=== PATIENT | male | born 1960 | race Caucasian/White ===

== ENCOUNTER → 2016-08-02 | Outpatient (CLI) | payer OTHER ==
[2016-08-02 13:59] LABS: BASO % 0.3 %; BASO ABS # 0.02 K/uL (0-0.2); COMPLETE YES; HEMATOCRIT 45.5 % (42-52); IG% 0.3 %; LYMPH % 40.6 %; LYMPH ABS # 2.82 K/uL (1.2-3.4); MEAN CELL VOLUME 84.3 fL (80-100); MEAN CORPUSCULAR HEMOGLOBIN 29.1 pg (25-34); MEAN CORPUSCULAR HGB CONC 34.5 g/dl (32-36); MEAN PLATELET VOLUME 11.8 fL (7.4-10.4); MONO % 8.6 %; NEUT % 49.2 %; PLATELET COUNT 180 K/uL (130-400); WHITE BLOOD COUNT 6.94 K/uL (4.8-10.8)
[2016-08-02 14:17] LABS: ALT/SGPT 23 U/L (12-78); AST/SGOT 8 U/L (15-37); BLOOD UREA NITROGEN 7 mg/dl (7-18); BUN/CREATININE RATIO 7.6 (10-20); CALCIUM 8.9 mg/dl (8.5-10.1); CARBON DIOXIDE 30 mmol/L (21-32); CHLORIDE 104 mmol/L (98-107); CREATININE 0.92 mg/dl (0.60-1.40); GLUCOSE 311 mg/dl (70-99); SODIUM 140 mmol/L (136-145)
[2016-08-02 14:21] LABS: ALKALINE PHOSPHATASE 117 U/L (45-117); CHOLESTEROL 196 mg/dl (0-200); CHOLESTEROL/HDL RATIO 5.8; HDL CHOLESTEROL 34 mg/dl; LDL CHOLESTEROL CALCULATED 116 mg/dl; TRIGLYCERIDES 229 mg/dl (0-150); VERY LOW DENSITY LIPOPROT CALC 46 mg/dl
[2016-08-02 14:28] LABS: BETA-HYDROXYBUTYRATE 2.14 mg/dL (0.2-2.81); PROSTATE SPECIFIC ANTIGEN 0.426 ng/ml (0.000-4.000)
== END | disposition home or self-care (01) ==
LOC: C.LABBC 11:38
PROVIDERS: ATTEND Nurse Practitioner Family
DX: Z13.220 Encounter for screening for lipoid disorders (principal); Z12.5 Encounter for screening for malignant neoplasm of prostate; Z13.1 Encounter for screening for diabetes mellitus

== ENCOUNTER → 2016-08-03 | Outpatient (CLI) | payer OTHER ==
[2016-08-03 17:36] LABS: RATIO 94.4 mcg/mg (0-30.0)
[2016-08-04 05:52] LABS: ESTIMATED AVERAGE GLUCOSE 329 mg/dl; HA1C FLAG Normal (Normal)
== END | disposition home or self-care (01) ==
LOC: C.LABBC 13:16
PROVIDERS: ATTEND Nurse Practitioner Family
DX: R73.9 Hyperglycemia, unspecified (principal)

== ENCOUNTER 2017-05-25 14:19 | Emergency (ER) | payer OTHER ==
[~2017-05-25] VITALS: Ht 177.8 cm; Wt 117.9 kg
[2017-05-25 14:24] VITALS: TEMP 36.8; Ht 177.8 cm; Wt 117.9 kg
[2017-05-25] MEDS ORDERED: HYDROCODONE/ACETAMOPHEN 5/325MG TAB PO ONE (15:00)
[2017-05-25] MEDS ORDERED: GLC/500 PO (15:27)
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
--- NOTE | 2017-05-25 15:32 | DIAGNOSTIC IMAGING REPORT ---
CHEST 2 VIEWS ROUTINE CLINICAL HISTORY: shortness of breath dyspnea COMPARISON STUDY: No previous studies for comparison. FINDINGS: Slight peribronchial and/or interstitial prominence. No well-defined focal infiltrate. Diaphragms are smooth. Pulmonary apices are clear. IMPRESSION: Slight basilar peribronchial and interstitial change. Otherwise negative study. The above report was generated using voice recognition software. It may contain grammatical, syntax or spelling errors. Electronically signed by: Jake Romero M.D. 05/25/2017 3:31 PM Dictated Date/Time: 05/25/2017 3:30 PM
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
[2017-05-25] MEDS ORDERED: HYDR-5688 PO (16:07)
[2017-05-25 16:10] VITALS: BP 125/95; PULSE 115; O2SAT 93
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
[2017-05-29] MEDS ORDERED: HYDR-5688 PO (15:05)
== END 2017-05-25 16:18 | disposition home or self-care (01) ==
LOC: C.EDB 14:21 → C.EDD 16:18
DX: S52.001A Unspecified fracture of upper end of right ulna, initial encounter for closed fracture (principal); Y04.0XXA Assault by unarmed brawl or fight, initial encounter; W01.198A Fall on same level from slipping, tripping and stumbling with subsequent striking against other object, initial encounter; Z87.81 Personal history of (healed) traumatic fracture; Z79.84 Long term (current) use of oral hypoglycemic drugs

== ENCOUNTER 2024-03-17 13:08 | Observation (INO) ==
[2024-03-17] MEDS: OPTIRAY 320 100ml IV ONE (13:44)
[2024-03-17 13:49] LABS: Basophils # (auto) 0.06 K/uL (0.00-0.20); Basophils % (auto) 0.8 %; Eosinophils # (auto) 0.08 K/uL (0.00-0.50); Hematocrit (blood only) 47.7 % (42.0-52.0); Hemoglobin 16.1 g/dl (14.0-18.0); Immature Granulocytes # (auto) 0.05 K/uL (0.01-0.20); Immature Granulocytes % (auto) 0.6 %; Lymphocytes # (auto) 2.82 K/uL (1.20-3.40); Lymphocytes % (auto) 36.6 %; Mean Corpuscular Hemoglobin 28.6 pg (25.0-34.0); Mean Corpuscular Hgb Conc 33.8 g/dL (32.0-36.0); Mean Corpuscular Volume 84.9 fL (80.0-100.0); Mean Platelet Volume 11.3 fL (9.4-12.4); Monocytes # (auto) 0.81 K/uL (0.11-0.59); Monocytes % (auto) 10.5 %; Neutrophils # (auto) 3.88 K/uL (1.40-6.50); Neutrophils % (auto) 50.5 %; Platelet Count 171 K/uL (130-400); RDW Coefficient of Variation 11.9 % (11.5-14.5); RDW Standard Deviation 36.3 fL (36.4-46.3); Red Blood Count 5.62 M/uL (4.70-6.10)
[2024-03-17 13:53] LABS: iSTAT Ionized Calcium 1.22 mmol/l (1.12-1.32); iSTAT Potassium 3.8 mmol/L (3.3-5.0)
[2024-03-17 14:05] LABS: Albumin Globulin Ratio 1.4 (0.9-2); Albumin Level 4.6 gm/dl (3.4-5.0); BUN Creatinine Ratio 15.7 (10-20); Bilirubin,Total 0.5 mg/dl (0.2-1.0); Calcium 9.8 mg/dl (8.6-10.3); Creatinine Clr Calc Pharmacy 90.8 ml/min; Globulin 3.2 gm/dl (2.5-4.0); Potassium 3.8 mmol/L (3.5-5.1); Total Protein 7.8 gm/dl (6.0-8.3)
[2024-03-17 14:11] LABS: Troponin I High Sensitivity 5.9 pg/ml (0-20)
--- NOTE | 2024-03-17 14:14 | CT Scan Report ---
EXAM: CT Head Without Intravenous Contrast INDICATION: Slurred speech and right facial droop. TECHNIQUE: Axial computed tomography images of the head/brain without intravenous contrast. Sagittal and/or coronal reformats are provided. Sagittal and coronal reformatted images were created and reviewed. This CT exam was performed using one or more of the following dose reduction techniques: automated exposure control, adjustment of the mA and/or kV according to patient size, and/or use of iterative reconstruction technique. COMPARISON: No relevant prior studies available. FINDINGS: Limitations: None. Brain and extra-axial spaces: There is age appropriate cortical atrophy and chronic ischemic periventricular white matter hypodensity. No acute infarct, hemorrhage or mass noted. Bones/joints: No acute changes. Soft tissues: No significant abnormality noted. Vasculature: No acute abnormality noted. Sinuses: Trace chronic mucosal thickening floor of the left maxillary sinus. Mastoid air cells: No mastoid effusion. Orbits: No significant abnormality noted. Dental: Apical erosion of multiple maxillary teeth. IMPRESSION: 1. Cerebral atrophy. No acute changes. 2. Apical erosion of multiple maxillary teeth. 3. Trace chronic mucosal thickening floor of the left maxillary sinus. ACT 112: Negative or not required by law. Electronically signed by Demetrice Hayden 03-17-2024 2:14 PM
[2024-03-17 14:15] LABS: Partial Thromboplastin Time 27 Seconds (21-31); Prothrombin Time 10.9 Seconds (9.0-12.0)
--- NOTE | 2024-03-17 14:18 | Emergency Department Note ---
Impression & Plan Facial droop, Slurred speech ED Provider Note HISTORY OF PRESENT ILLNESS: Patient is a 63-year-old male presenting with facial droop and slurred speech. Patient reports that he went to bed last night around 2100 and thought he might of had some droop in his face. He states that he awoke this morning around 5 AM and noticed that the right side of his face was drooping and he had difficulty speaking and had slurred speech. He states that he thought the symptoms would improve, but they did not over the subsequent hours, prompting him to present to the emergency department. He denies any history of previous strokes. Denies any headache or changes in vision. Denies any chest pain or shortness of breath. Denies any nausea or vomiting. Denies any recent rashes. ROS: as above PHYSICAL EXAM: Constitutional: Patient appears in no acute distress. Patient appears unkempt HENT: Head: Normocephalic and atraumatic. Eyes: EOMI, PERRL Mouth/Throat: Mucous membranes moist. Neck: Trachea midline. Neck supple. Cardiovascular: Tachycardic with regular rhythm. No murmurs, rubs or gallops. Intact distal pulses. Pulmonary/Chest: No respiratory distress. Breath sounds clear and equal bilaterally. No wheezes or rales. No chest wall tenderness to palpation. Abdominal: Abdomen soft, no tenderness, rebound or guarding. Musculoskeletal: No edema, tenderness or deformity noted. Skin: Warm and dry. No rash, erythema, pallor or cyanosis Psychiatric: Appropriate mood and affect for situation. Neurological: Alert and keenly responsive. Patient has significant droop of the right side of the face that involves the forehead. Able to shrug shoulders. PERRLA. SILT to forehead below eye and at jawline. Can hear soft noise bilaterally. Good finger to nose. Strength 5/5 in bilateral upper and lower extremities. SILT throughout bilateral upper and lower extremities. MDM: - Vitals signs showed hypertension and tachycardia - History obtained via patient. History as above. - Chronic conditions affecting care: DM-2 - Differential diagnoses include, but are not limited to: CVA; intracranial hemorrhage; ACS; electrolyte abnormality; dysrhythmia; Contreras's palsy - Order placed for continuous cardiac monitoring. At this time, monitor showed rate of 100 bpm with normal sinus rhythm, per my interpretation. - External medical records reviewed. Primary care visit note dated 07/16/2020 was reviewed. Patient has a history of diabetes and was supposed to be started on losartan at that visit. However, no new documentation since 2020. - EKG interpreted by myself showed normal sinus rhythm. Rate 110 bpm. QT 350. No acute ischemic changes. - Laboratory workup interpreted by myself showed normal WBC; normal PT/INR; stable electrolytes; normal troponin; hyperglycemia (glucose 262) without evidence of DKA - CT head wo contrast negative for acute pathology. Noted to have cerebral atrophy. Noted to have apical erosions multiple maxillary teeth. - CTA head/neck with IV contrast showed no large vessel occlusion. Noted to have atherosclerosis of the proximal extracranial into carotid arteries. - CXR negative for pneumonia, per my interpretation - UA ordered - Patient is noncompliant with medications at home but does not follow regularly with a doctor. His facial droop does involve his forehead, so Contreras's palsy is more likely on the differential. However, I cannot initiate steroids at this time secondary to his hyperglycemia in the setting of his diabetes. I do feel that he requires further strokelike symptoms workup, including medication management and MRI imaging, so will admit to hospitalist service. - Discussion was had with caseworker intake about patient's case and need for admission - Hospitalist consulted for admission - Patient admitted to [facility] hospitalist service for further evaluation and management. ASSESSMENT AND PLAN: Diagnosis: Facial droop; slurred speech Plan: Admit Past Med/Surg History Problem List (Updated 03/17/24 @ 15:58 by Herminia Mercedes PA-C) Tachycardia Stroke-like symptoms Slurred speech (Acute) Facial droop (Acute) Sciatic leg pain (Acute) Diabetes Medical History No significant past medical history Surgical History History of surgery on arm Family History Brother Liver cancer Lung cancer Denies family history of Colon cancer Ovarian cancer Prostate cancer Myocardial infarction Breast cancer Social History Smoking Status: Never smoker Tobacco Type: Cigarettes Age Started Using Tobacco: 23; Age Quit Using Tobacco: 49; packs per day: 5; Second Hand Exposure: Yes; Do You Dip or Chew Tobacco: Yes; Hx Alcohol Use: Yes Alcohol type: hard liquor Alcohol Intake Frequency: Never Hx Substance Use: No Preferred Language: Persian Communication Ability: Effective Visual Impairment: No Limitations Hearing Ability: Normal marital status: Single Current Living Situation: Other Current Living Situation Comment: Roomates current occupational status: employed current occupation: [employer] Feels Safe at Home: Yes Childhood Exposure to Second-Hand Smoke: No Dental Care, Regularly: No Physical Activity Frequency: Does not Exercise Seatbelt Use: never Sunscreen Use: No Allergies Allergies Allergy/AdvReac Type Severity Reaction Status Date / Time aspirin AdvReac Mild vomiting Unverified 07/16/20 17:25 Home Meds Home Medications Medication Instructions Recorded Confirmed tramadol 50 mg tablet 50 - 100 mg PO Q6 PRN Pain 06/25/20 07/16/20 Previous Rx's Medication Instructions Recorded losartan 25 mg tablet 25 mg PO DAILY #90 tabs 07/16/20 metformin 500 mg tablet 500 mg PO BID #180 tabs 07/20/20 Results & Data (ED) Vital Signs Vital Signs - 24 hr 03/17/24 13:18 03/17/24 13:33 03/17/24 13:33 Temperature 36.1 C L Temperature Source Skin Pulse Rate 110 H 108 H Pulse Rate [Right Finger] 111 H Pulse Rhythm Regular Pulse Rhythm [Right Finger] Regular Pulse Strength [Right Finger] Normal Respiratory Rate 17 17 22 Respiratory Effort / Characteristics Non-Labored Spontaneous Non-Labored Respiratory Depth Normal Normal Respiratory Pattern Regular Regular Blood Pressure 197/119 H Blood Pressure [Right Arm] 174/110 H Blood Pressure Mean 145 Blood Pressure Mean [Right Arm] 131 Blood Pressure Position [Right Arm] Lying Pulse Oximetry 95 95 95 Oxygen Delivery Method Room Air Room Air Room Air Sepsis Recent Fever Within 48 Hours No Sepsis New/Unexplained Change in Mental Status N/A Sepsis Action Taken by Nursing No Action Required 03/17/24 14:02 03/17/24 15:10 03/17/24 15:34 Temperature Temperature Source Pulse Rate 98 H Pulse Rate [Right Finger] 102 H Pulse Rhythm Pulse Rhythm [Right Finger] Regular Pulse Strength [Right Finger] Normal Respiratory Rate 22 Respiratory Effort / Characteristics Non-Labored Spontaneous Respiratory Depth Normal Respiratory Pattern Regular Blood Pressure Blood Pressure [Right Arm] 118/96 Blood Pressure Mean Blood Pressure Mean [Right Arm] 103 Blood Pressure Position [Right Arm] Lying Pulse Oximetry 93 93 Oxygen Delivery Method Room Air Room Air Sepsis Recent Fever Within 48 Hours Sepsis New/Unexplained Change in Mental Status Sepsis Action Taken by Nursing Laboratory Data 03/17/24 13:35 03/17/24 13:35 Lab Results 03/17/24 03/17/24 03/17/24 Range/Units 13:35 13:40 13:41 WBC 7.70 (4.8-10.8) K/ul RBC 5.62 (4.70-6.10) M/uL Hgb 16.1 (14.0-18.0) g/dl POC Hgb 17.0 (14.0-18.0) g/dl Hct 47.7 (42.0-52.0) % POC Hct 50 (42-52) % MCV 84.9 (80.0-100.0) fL MCH 28.6 (25.0-34.0) pg MCHC 33.8 (32.0-36.0) g/dL RDW Std Deviation 36.3 L (36.4-46.3) fL RDW Coeff of Buck 11.9 (11.5-14.5) % Plt Count 171 (130-400) K/uL MPV 11.3 (9.4-12.4) fL Immature Gran % (Auto) 0.6 % Neut % (Auto) 50.5 % Lymph % (Auto) 36.6 % [place] % (Auto) 10.5 % Eos % (Auto) 1.0 % Baso % (Auto) 0.8 % Neut # (Auto) 3.88 (1.40-6.50) K/uL Lymph # (Auto) 2.82 (1.20-3.40) K/uL [place] # (Auto) 0.81 H (0.11-0.59) K/uL Eos # (Auto) 0.08 (0.00-0.50) K/uL Baso # (Auto) 0.06 (0.00-0.20) K/uL Immature Gran # (Auto) 0.05 (0.01-0.20) K/uL PT 10.9 (9.0-12.0) Seconds INR 1.0 (0.9-1.1) APTT 27 (21-31) Seconds PTT Ratio 1.0 POC Sodium 140 (135-144) mmol/L Sodium 137 (136-145) mmol/L POC Potassium 3.8 (3.3-5.0) mmol/L Potassium 3.8 (3.5-5.1) mmol/L POC Chloride 99 L (101-112) mmol/L Chloride 100 (98-107) mmol/L Carbon Dioxide 28 (21-32) mmol/L POC Total CO2 25 (24-31) mmol/L Anion Gap 9 (3-11) POC Anion Gap 22.0 (16-25) mmol/L POC BUN 19 H (7-18) mg/dl BUN 17 (6-23) mg/dl Creatinine 1.08 (0.6-1.4) mg/dl POC Creatinine 1.0 (0.6-1.3) mg/dl Est Cr Clr Drug Dosing 90.8 ml/min eGFR 78.07 BUN/Creatinine Ratio 15.7 (10-20) Glucose 262 H (70-99(Fasting)) mg/dl POC Glucose 238 H (70-99) mg/dl POC Glucose (other) 268 H (70-99) mg/dl Calcium 9.8 (8.6-10.3) mg/dl POC Ioniz Calcium Alyssa 1.22 (1.12-1.32) mmol/l Total Bilirubin 0.5 (0.2-1.0) mg/dl AST 12 L (13-39) U/L ALT 12 (7-52) U/L Alkaline Phosphatase 92 (34-104) U/L Troponin I High Sens 5.9 (0-20) pg/ml Total Protein 7.8 (6.0-8.3) gm/dl Albumin 4.6 (3.4-5.0) gm/dl Globulin 3.2 (2.5-4.0) gm/dl Albumin/Globulin Ratio 1.4 (0.9-2) Administered Medications Discontinued Medications Ioversol (Optiray 320 100ml) 112 ml IV ONCE ONE Stop: 03/17/24 13:45 Last Admin: 03/17/24 13:44 Dose: 112 ml Documented By: YASEMIN Imaging Data Radiologist's Impression: Chest X-Ray 03/17/24 13:23 EXAM: Radiograph of the Chest 1 View INDICATION: Stroke symptoms. TECHNIQUE: Frontal view of the chest. COMPARISON: 05/25/2017 FINDINGS: Lungs and pleural spaces: Stable mild interstitial and basilar pulmonary scarring. No consolidation or pulmonary edema. No pleural effusion or pneumothorax. Heart: Shape and configuration within normal limits allowing for technique. Mediastinum: Normal contour. Bones/joints: Degenerative changes noted in the scoliotic spine. No acute osseous abnormality noted. Soft tissues: No abnormality noted. No radiopaque foreign body noted. Upper abdomen: No abnormality noted. IMPRESSION: No acute cardiopulmonary disease. ACT 112: Negative or not required by law. Electronically signed by Demetrice Hayden 03-17-2024 2:[address] 03/17/24 13:23 EXAM: CT Head Without Intravenous Contrast INDICATION: Slurred speech and right facial droop. TECHNIQUE: Axial computed tomography images of the head/brain without intravenous contrast. Sagittal and/or coronal reformats are provided. Sagittal and coronal reformatted images were created and reviewed. This CT exam was performed using one or more of the following dose reduction techniques: automated exposure control, adjustment of the mA and/or kV according to patient size, and/or use of iterative reconstruction technique. COMPARISON: No relevant prior studies available. FINDINGS: Limitations: None. Brain and extra-axial spaces: There is age appropriate cortical atrophy and chronic ischemic periventricular white matter hypodensity. No acute infarct, hemorrhage or mass noted. Bones/joints: No acute changes. Soft tissues: No significant abnormality noted. Vasculature: No acute abnormality noted. Sinuses: Trace chronic mucosal thickening floor of the left maxillary sinus. Mastoid air cells: No mastoid effusion. Orbits: No significant abnormality noted. Dental: Apical erosion of multiple maxillary teeth. IMPRESSION: 1. Cerebral atrophy. No acute changes. 2. Apical erosion of multiple maxillary teeth. 3. Trace chronic mucosal thickening floor of the left maxillary sinus. ACT 112: Negative or not required by law. Electronically signed by Demetrice Hayden 03-17-2024 2:14 PM Head CTA 03/17/24 13:23 EXAM: CT Angiography Head and Neck With Intravenous Contrast INDICATION: Slurred speech. Right facial droop. TECHNIQUE: [place] [facility] [place]/head and neck CT angiography protocol performed with intravenous contrast. Sagittal and coronal reformatted images were created and reviewed. This CT exam was performed using one or more of the following dose reduction techniques: automated exposure control, adjustment of the mA and/or kV according to patient size, and/or use of iterative reconstruction technique. MIP reconstructed images were created and reviewed. CONTRAST: 112 ml of Optiray 320 was administered intravenously. COMPARISON: None. FINDINGS: HEAD: Right anterior cerebral artery: No abnormality noted. No occlusion or significant stenosis. Anterior communicating artery is present. No aneurysm. Right middle cerebral artery: No abnormality noted. No occlusion or significant stenosis. No aneurysm. Right posterior cerebral artery: No abnormality noted. No occlusion or significant stenosis. No aneurysm. Right intracranial internal carotid artery: Mild calcific plaque noted. No significant stenosis. No dissection or occlusion. Right intracranial vertebral artery: No abnormality noted. No significant stenosis. No dissection or occlusion. Left anterior cerebral artery: No abnormality noted. No occlusion or significant stenosis. No aneurysm. Left middle cerebral artery: No abnormality noted. No occlusion or significant stenosis. No aneurysm. Left posterior cerebral artery: No abnormality noted. No occlusion or significant stenosis. No aneurysm. Left intracranial internal carotid artery: Mild calcific plaque noted d. No significant stenosis. No dissection or occlusion. Left intracranial vertebral artery: No abnormality noted. No significant stenosis. No dissection or occlusion. Basilar artery: No abnormality noted. No occlusion or significant stenosis. No aneurysm. Other vasculature: No vascular malformation. NECK: Right common carotid artery: No abnormality noted. No significant stenosis. No dissection or occlusion. Right extracranial internal carotid artery: Mild mixed plaque. Tortuous. No significant stenosis. No dissection or occlusion. Right external carotid artery: No abnormality noted. No occlusion. Right extracranial vertebral artery: Mild plaque at the origin. No significant stenosis. No dissection or occlusion. Left common carotid artery: No abnormality noted. No significant stenosis. No dissection or occlusion. Left extracranial internal carotid artery: Moderate mixed plaque at the bulb with retropharyngeal course and tortuosity of the internal carotid artery. Approximate 20% proximal stenosis. No dissection or occlusion. Left external carotid artery: No abnormality noted. No occlusion. Left extracranial vertebral artery: No abnormality noted. No significant stenosis. No dissection or occlusion. Lung apices: No significant abnormality noted. HEAD and NECK: Bones/joints: No significant abnormality. Soft tissues: No abnormality noted. Lymph nodes: There are few prominent likely reactive lateral aortic and precarinal lymph nodes. CAROTID STENOSIS REFERENCE USING NASCET CRITERIA: % ICA stenosis = (1 - narrowest ICA diameter/diameter of distal cervical ICA) x 100. Mild - <50% stenosis. Moderate - 50-69% stenosis. Severe - 70-94% stenosis. Near occlusion - 95-99% stenosis. Occluded - 100% stenosis. IMPRESSION: 1. No large vessel occlusion, aneurysm or dissection. 2. Atherosclerosis of the proximal extracranial internal carotid arteries without significant stenosis. ACT 112: Negative or not required by law. Electronically signed by Demetrice Hayden 03-17-2024 2:20 PM Neck CTA 03/17/24 13:23 EXAM: CT Angiography Head and Neck With Intravenous Contrast INDICATION: Slurred speech. Right facial droop. TECHNIQUE: [place] [facility] [place]/head and neck CT angiography protocol performed with intravenous contrast. Sagittal and coronal reformatted images were created and reviewed. This CT exam was performed using one or more of the following dose reduction techniques: automated exposure control, adjustment of the mA and/or kV according to patient size, and/or use of iterative reconstruction technique. MIP reconstructed images were created and reviewed. CONTRAST: 112 ml of Optiray 320 was administered intravenously. COMPARISON: None. FINDINGS: HEAD: Right anterior cerebral artery: No abnormality noted. No occlusion or significant stenosis. Anterior communicating artery is present. No aneurysm. Right middle cerebral artery: No abnormality noted. No occlusion or significant stenosis. No aneurysm. Right posterior cerebral artery: No abnormality noted. No occlusion or significant stenosis. No aneurysm. Right intracranial internal carotid artery: Mild calcific plaque noted. No significant stenosis. No dissection or occlusion. Right intracranial vertebral artery: No abnormality noted. No significant stenosis. No dissection or occlusion. Left anterior cerebral artery: No abnormality noted. No occlusion or significant stenosis. No aneurysm. Left middle cerebral artery: No abnormality noted. No occlusion or significant stenosis. No aneurysm. Left posterior cerebral artery: No abnormality noted. No occlusion or significant stenosis. No aneurysm. Left intracranial internal carotid artery: Mild calcific plaque noted d. No significant stenosis. No dissection or occlusion. Left intracranial vertebral artery: No abnormality noted. No significant stenosis. No dissection or occlusion. Basilar artery: No abnormality noted. No occlusion or significant stenosis. No aneurysm. Other vasculature: No vascular malformation. NECK: Right common carotid artery: No abnormality noted. No significant stenosis. No dissection or occlusion. Right extracranial internal carotid artery: Mild mixed plaque. Tortuous. No significant stenosis. No dissection or occlusion. Right external carotid artery: No abnormality noted. No occlusion. Right extracranial vertebral artery: Mild plaque at the origin. No significant stenosis. No dissection or occlusion. Left common carotid artery: No abnormality noted. No significant stenosis. No dissection or occlusion. Left extracranial internal carotid artery: Moderate mixed plaque at the bulb with retropharyngeal course and tortuosity of the internal carotid artery. Approximate 20% proximal stenosis. No dissection or occlusion. Left external carotid artery: No abnormality noted. No occlusion. Left extracranial vertebral artery: No abnormality noted. No significant stenosis. No dissection or occlusion. Lung apices: No significant abnormality noted. HEAD and NECK: Bones/joints: No significant abnormality. Soft tissues: No abnormality noted. Lymph nodes: There are few prominent likely reactive lateral aortic and precarinal lymph nodes. CAROTID STENOSIS REFERENCE USING NASCET CRITERIA: % ICA stenosis = (1 - narrowest ICA diameter/diameter of distal cervical ICA) x 100. Mild - <50% stenosis. Moderate - 50-69% stenosis. Severe - 70-94% stenosis. Near occlusion - 95-99% stenosis. Occluded - 100% stenosis. IMPRESSION: 1. No large vessel occlusion, aneurysm or dissection. 2. Atherosclerosis of the proximal extracranial internal carotid arteries without significant stenosis. ACT 112: Negative or not required by law. Electronically signed by Demetrice Hayden 03-17-2024 2:22 PM Discharge Plan Visit Data Chief Complaint: Stroke/CVA Symptoms Stated Complaint: POSSIBLE STROKE, SLURRED SPEECH ED Provider: Aline Molina Discharge Problem: Facial droop, Slurred speech Forms Stand Alone Forms: My [facility] [employer] Prescriptions Prescriptions: No Action metformin 500 mg tablet 500 mg PO BID Qty: 180 1RF losartan 25 mg tablet 25 mg PO DAILY Qty: 90 1RF tramadol 50 mg tablet 50 - 100 mg PO Q6 PRN (Reason: Pain) Referrals Referrals: Herb June III, CRNP [Primary Care Provider] -
--- NOTE | 2024-03-17 14:22 | CT Scan Report ---
EXAM: CT Angiography Head and Neck With Intravenous Contrast INDICATION: Slurred speech. Right facial droop. TECHNIQUE: [place] [facility] [place]/head and neck CT angiography protocol performed with intravenous contrast. Sagittal and coronal reformatted images were created and reviewed. This CT exam was performed using one or more of the following dose reduction techniques: automated exposure control, adjustment of the mA and/or kV according to patient size, and/or use of iterative reconstruction technique. MIP reconstructed images were created and reviewed. CONTRAST: 112 ml of Optiray 320 was administered intravenously. COMPARISON: None. FINDINGS: HEAD: Right anterior cerebral artery: No abnormality noted. No occlusion or significant stenosis. Anterior communicating artery is present. No aneurysm. Right middle cerebral artery: No abnormality noted. No occlusion or significant stenosis. No aneurysm. Right posterior cerebral artery: No abnormality noted. No occlusion or significant stenosis. No aneurysm. Right intracranial internal carotid artery: Mild calcific plaque noted. No significant stenosis. No dissection or occlusion. Right intracranial vertebral artery: No abnormality noted. No significant stenosis. No dissection or occlusion. Left anterior cerebral artery: No abnormality noted. No occlusion or significant stenosis. No aneurysm. Left middle cerebral artery: No abnormality noted. No occlusion or significant stenosis. No aneurysm. Left posterior cerebral artery: No abnormality noted. No occlusion or significant stenosis. No aneurysm. Left intracranial internal carotid artery: Mild calcific plaque noted d. No significant stenosis. No dissection or occlusion. Left intracranial vertebral artery: No abnormality noted. No significant stenosis. No dissection or occlusion. Basilar artery: No abnormality noted. No occlusion or significant stenosis. No aneurysm. Other vasculature: No vascular malformation. NECK: Right common carotid artery: No abnormality noted. No significant stenosis. No dissection or occlusion. Right extracranial internal carotid artery: Mild mixed plaque. Tortuous. No significant stenosis. No dissection or occlusion. Right external carotid artery: No abnormality noted. No occlusion. Right extracranial vertebral artery: Mild plaque at the origin. No significant stenosis. No dissection or occlusion. Left common carotid artery: No abnormality noted. No significant stenosis. No dissection or occlusion. Left extracranial internal carotid artery: Moderate mixed plaque at the bulb with retropharyngeal course and tortuosity of the internal carotid artery. Approximate 20% proximal stenosis. No dissection or occlusion. Left external carotid artery: No abnormality noted. No occlusion. Left extracranial vertebral artery: No abnormality noted. No significant stenosis. No dissection or occlusion. Lung apices: No significant abnormality noted. HEAD and NECK: Bones/joints: No significant abnormality. Soft tissues: No abnormality noted. Lymph nodes: There are few prominent likely reactive lateral aortic and precarinal lymph nodes. CAROTID STENOSIS REFERENCE USING NASCET CRITERIA: % ICA stenosis = (1 - narrowest ICA diameter/diameter of distal cervical ICA) x 100. Mild - <50% stenosis. Moderate - 50-69% stenosis. Severe - 70-94% stenosis. Near occlusion - 95-99% stenosis. Occluded - 100% stenosis. IMPRESSION: 1. No large vessel occlusion, aneurysm or dissection. 2. Atherosclerosis of the proximal extracranial internal carotid arteries without significant stenosis. ACT 112: Negative or not required by law. Electronically signed by Demetrice Hayden 03-17-2024 2:22 PM
--- NOTE | 2024-03-17 14:57 | XRay Report ---
EXAM: Radiograph of the Chest 1 View INDICATION: Stroke symptoms. TECHNIQUE: Frontal view of the chest. COMPARISON: 05/25/2017 FINDINGS: Lungs and pleural spaces: Stable mild interstitial and basilar pulmonary scarring. No consolidation or pulmonary edema. No pleural effusion or pneumothorax. Heart: Shape and configuration within normal limits allowing for technique. Mediastinum: Normal contour. Bones/joints: Degenerative changes noted in the scoliotic spine. No acute osseous abnormality noted. Soft tissues: No abnormality noted. No radiopaque foreign body noted. Upper abdomen: No abnormality noted. IMPRESSION: No acute cardiopulmonary disease. ACT 112: Negative or not required by law. Electronically signed by Demetrice Hayden 03-17-2024 2:56 PM
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
--- NOTE | 2024-03-17 18:16 | Magnetic Resonance Report ---
MRI of the brain performed without IV contrast History: Neuro deficit Comparison: No prior Technique: Sagittal T1-weighted and axial T2-weighted, T2/FLAIR and diffusion-weighted with ADC map images of the brain were obtained without IV contrast. Findings: No evidence for intracranial mass lesion, mass-effect, midline shift, or abnormal extra-axial fluid collection. The ventricles and sulci are within normal limits for age. There is mild periventricular and subcortical high signal intensity abnormality on T2/FLAIR, most consistent with chronic small vessel ischemic disease. No abnormally reduced diffusion or evidence for acute infarct. Normal intravascular flow voids. Impression: Normal brain MRI Electronically signed by Ayush Kerns 03-17-2024 6:13 PM
[2024-03-17] MEDS ORDERED: GLUCAGON FOR INJ 1 MG VIAL SQ PRN (18:40)
[2024-03-17] MEDS ORDERED: ACETAMINOPHEN 325 MG TAB PO PRN (18:40)
[2024-03-17] MEDS ORDERED: DOCUSATE SODIUM 100 MG CAP PO PRN (18:40)
[2024-03-17] MEDS ORDERED: DEXTROSE 50% 50 ML SYRINGE IV PRN (18:40)
[2024-03-17] MEDS ORDERED: GLUCOSE 10 TAB/TUBE PO PRN (18:40)
[2024-03-17] MEDS ORDERED: GLUCOSE 40% GEL 15 GM TUBE PO PRN (18:40)
[2024-03-17] MEDS ORDERED: CARBOHYDRATES FOR HYPOGLYCEMIA PO PRN (18:40)
[2024-03-17] MEDS: POTASSIUM CHLORIDE CRTAB 20 MEQ TABCR PO STA (20:07)
[2024-03-17] MEDS: INSULIN ASPART PER UNIT CHARGE SC SCH (20:14)
[2024-03-17 21:59] LABS: Appearance Urine Clear (Clear); Bacteria Urine Automated None Seen (None Seen); Bilirubin Urine Negative (Negative); Blood Urine Negative (Negative); Cast Urine Automated 0-2 /lpf (0-2); Color Urine Yellow; Epithelial Cell Urine Auto 0-2 /hpf (0-2); Glucose Urine UA Negative (Negative); Ketones Urine Trace (Negative); Leukocyte Esterase Urine Negative (Negative); Nitrite Urine Negative (Negative); Protein Urine Trace (Negative); RBC Urine Automated 0-2 /hpf (0-2); Specific Gravity Urine > 1.045 (1.000-1.030); Urobilinogen Urine Negative (Negative); WBC Urine Automated 0-5 /hpf (0-5)
--- NOTE | 2024-03-18 06:25 | Electrocardiogram Report ---
Test Reason : Blood Pressure : */* mmHG Vent. Rate : 110 BPM Atrial Rate : 110 BPM P-R Int : 146 ms QRS Dur : 82 ms QT Int : 350 ms P-R-T Axes : 32 24 30 degrees QTcB Int : 473 ms Sinus tachycardia Minimal voltage criteria for LVH, may be normal variant Borderline ECG No previous ECGs available Confirmed by Abilio Bruno ([id number]) on 03/18/2024 6:25:25 AM Referred By: Confirmed By: Abilio Bruno
[2024-03-18 06:38] LABS: Hematocrit (blood only) 44.4 % (42.0-52.0); Hemoglobin 14.9 g/dl (14.0-18.0); Mean Corpuscular Hemoglobin 28.8 pg (25.0-34.0); Mean Corpuscular Hgb Conc 33.6 g/dL (32.0-36.0); Mean Corpuscular Volume 85.9 fL (80.0-100.0); Mean Platelet Volume 11.7 fL (9.4-12.4); Platelet Count 166 K/uL (130-400); RDW Standard Deviation 37.6 fL (36.4-46.3); Red Blood Count 5.17 M/uL (4.70-6.10); White Blood Count 8.83 K/ul (4.8-10.8)
[2024-03-18 06:54] LABS: BUN Creatinine Ratio 15.8 (10-20); Calcium 9.3 mg/dl (8.6-10.3); Creatinine Clr Calc Pharmacy 81.4 ml/min; Magnesium 1.8 mg/dl (1.7-2.4)
[2024-03-18 07:52] VITALS: RESP 20
[2024-03-18 11:05] LABS: Estimated Average Glucose 283 mg/dl; Hemoglobin A1C 11.5 % (4.5-5.6)
[2024-03-18 11:44] VITALS: PULSE 94; TEMP 97.9; O2SAT 93
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
--- NOTE | 2024-03-18 12:54 | XCELERA ---
[id number] \\[id number]
[2024-03-18] MEDS: predniSONE 20 MG TAB PO SCH (13:24)
[2024-03-18 13:41] VITALS: BP 155/93
== END 2024-03-18 14:15 | disposition home or self-care (01) ==
LOC: SUATTDRO → ED 13:08 → 2N 13:08 → SUATTDRO 16:15 → 2N 17:37